=== PATIENT | female | born 1965 | race Caucasian/White ===

== ENCOUNTER 2023-12-03 15:20 | Outpatient (CLI) | payer OTHER, SELFPAY | END 2023-12-03 15:21 | disposition home or self-care (01) | PROVIDERS: PCP Physician Assistant Medical; Visit Provider Obstetrics & Gynecology | DX: R00.2 Palpitations (principal); N81.4 Uterovaginal prolapse, unspecified; Z13.220 Encounter for screening for lipoid disorders | CPT/HCPCS: 80061; 84443; 87086 ==

== ENCOUNTER 2024-07-21 16:08 | Outpatient (CLI) | payer OTHER, SELFPAY ==
[2024-07-24 04:38] LABS: HPV Source Cervical; HPV, High Risk by TMA Not Detected
[2024-08-08 18:44] LABS: Pap Test Reviewed by Path Done
== END 2024-07-21 16:09 | disposition home or self-care (01) ==
PROVIDERS: PCP Physician Assistant Medical; Visit Provider Obstetrics & Gynecology
DX: N95.0 Postmenopausal bleeding (principal); Z12.4 Encounter for screening for malignant neoplasm of cervix
CPT/HCPCS: 87624; 87625; 88141; 88142

== ENCOUNTER 2024-07-29 07:09 | Outpatient (CLI) | payer OTHER, SELFPAY ==
--- NOTE | 2024-07-29 07:15 | CRLHL7_ITS ---
For Patients: As a result of the Century Cures Act, medical imaging exams and procedure reports are released immediately into your electronic medical record. You may view this report before your referring provider. If you have questions, please contact your health care provider. INDICATION: Post menopausal bleeding. COMPARISON: none TECHNIQUE: 2D segundo scale and color Doppler images were acquired of the pelvis using a transabdominal and transvaginal approach. FINDINGS: Intramural fibroid within the left uterine segment measuring 7 x 5 x 6 millimeters. Uterus measures 6.6 cm in length by 2.6 cm in AP diameter by 4.4 cm in transverse dimension. The myometrium has a heterogeneous echotexture. The endometrial lining measures 2.5 mm in composite thickness. The right ovary measures 1.9 x 1.3 x 1.8 cm in size and the left ovary measures 1.6 x 0.9 x 1.2 cm. The ovaries demonstrate normal arterial and venous blood flow on color Doppler analysis. There are no suspicious fluid collections within the cul-de-sac. Collapsing right ovarian cyst measures 9 x 4 x 7 millimeters. IMPRESSION: Endometrial thickness 2.5 millimeters. Dictated by Kenny Norman MD @ 07/29/2024 11:52:08 AM (Electronically Signed)
== END 2024-07-29 07:10 | disposition home or self-care (01) ==
PROVIDERS: Visit Provider Obstetrics & Gynecology
DX: N95.0 Postmenopausal bleeding (principal); R93.89 Abnormal findings on diagnostic imaging of other specified body structures
CPT/HCPCS: 76830; 76856

== ENCOUNTER 2025-03-17 09:41 | Outpatient (CLI) | payer OTHER, SELFPAY | END 2025-03-17 09:42 | disposition home or self-care (01) | PROVIDERS: Visit Provider Obstetrics & Gynecology | DX: N95.1 Menopausal and female climacteric states (principal) | CPT/HCPCS: 82306; 83540; 83550 ==

== ENCOUNTER 2025-04-07 12:35 | Outpatient (CLI) | payer OTHER, SELFPAY ==
--- NOTE | 2025-04-07 13:00 | CRLHL7_ITS ---
For Patients: As a result of the Century Cures Act, medical imaging exams and procedure reports are released immediately into your electronic medical record. You may view this report before your referring provider. If you have questions, please contact your health care provider. INDICATION: Chronic sinusitis. Migraines. Pressure in frontal sinus. Pressure behind left eye and occasionally behind the right eye. Off balance. COMPARISON: None. TECHNIQUE: CT of the paranasal sinuses without intravenous contrast. FINDINGS: Clear frontal sinuses with patent drainage pathways. Clear ethmoid air cells. Clear sphenoid sinuses with patent drainage pathways. Minimal bilateral maxillary sinus mucosal thickening. Patent bilateral maxillary sinus drainage pathways including patent accessory maxillary sinus ostia. Rightward deviation of the nasal septum with a spur that contacts the right inferior turbinate. Small amount of right-sided missael bullosa. No substantial degenerative change of the temporomandibular joints. Clear mastoid air cells. IMPRESSION: 1. Overall minimal paranasal sinus mucosal thickening. Patent sinus drainage pathways. 2. Rightward deviation of the nasal septum with a spur that contacts the right inferior turbinate. Please note that all CT scans at this facility use dose modulation, iterative reconstruction, and/or weight-based dosing when appropriate to reduce radiation dose to as low as reasonably achievable. Dictated by Bernard Pate MD @ 04/07/2025 1:13:52 PM (Electronically Signed)
== END 2025-04-07 12:36 | disposition home or self-care (01) ==
LOC: CT 12:37
PROVIDERS: PCP Family Medicine; Visit Provider Otolaryngology
DX: J32.9 Chronic sinusitis, unspecified (principal); J34.2 Deviated nasal septum
CPT/HCPCS: 70486

== ENCOUNTER 2025-05-25 15:14 | Outpatient (CLI) | payer OTHER, SELFPAY | END 2025-05-25 15:15 | disposition home or self-care (01) | LOC: NFLDREF 15:15 | PROVIDERS: PCP Family Medicine; Visit Provider Obstetrics & Gynecology | DX: R82.90 Unspecified abnormal findings in urine (principal) | CPT/HCPCS: 87086 ==

== ENCOUNTER 2025-08-21 14:00 | Outpatient (CLI) | payer OTHER, SELFPAY | END 2025-08-21 14:01 | disposition home or self-care (01) | LOC: NFLDREF 08-24 13:16 | PROVIDERS: PCP Family Medicine; Referring Provider Family Medicine; Visit Provider Obstetrics & Gynecology | DX: R35.0 Frequency of micturition (principal) | CPT/HCPCS: 87086 ==